=== PATIENT | female | born 1985 | race Caucasian/White ===

== ENCOUNTER 2017-03-20 12:58 | Emergency (ER) | payer OTHER ==
[~2017-03-20] VITALS: Wt 86.5 kg
[~2017-03-20 12:58] MED LIST: AMOX500C2 PO; FERR236T PO; IBUP-1542 PO; PREN1TAB49
[2017-03-20] MEDS ORDERED: OSLT75C PO (14:18)
[2017-03-20 14:38] VITALS: TEMP 98.2
--- NOTE | 2017-03-20 15:01 | ERD ---
ER Documentation Chief Complaint Chief Complaint COUGH/BODYACHE/[id number] HPI 32 year old female presents with cough and body aches x 3 days. Patient reports dry and nonproductive cough. Denies fevers or chills. States she has bilateral ear pain at times. No ear drainage. No chest pain, shortness of breath or difficulty breathing. No wheezing. Patient is here with son with same symptoms. Has tried TheraFlu and NyQuil. ROS All systems reviewed and are negative except as per history of present illness. Medications Home Meds Active Scripts Oseltamivir Phosphate* (Tamiflu*) 75 Mg Capsule, 75 MG PO BID for 5 Days, CAP Prov:JOSIE GOODSON NP 03/20/17 Amoxicillin* (Amoxicillin*) 500 Mg Cap, 500 MG PO TID for 10 Days, CAP Prov:MARITO SAUCEDA MD 10/19/15 Ibuprofen* (Motrin*) 600 Mg Tab, 600 MG PO Q6, #15 TAB Prov:MARITO SAUCEDA MD 10/19/15 Reported Medications Ferrous Gluconate (Iron) 236 Mg Tablet, 236 MG PO DAILY 04/04/13 Vits W-Ca,Fe,Fa(<1MG) () 1 Tab Tablet 09/10/10 Allergies Allergies: Coded Allergies: No Known Allergy (Verified , 10/19/15) PMhx/Soc Medical and Surgical Hx: pt denies Medical Hx, pt denies Surgical Hx History of Surgery: No Anesthesia Reaction: No Hx Neurological Disorder: No Hx Respiratory Disorders: No Hx Cardiac Disorders: No Hx Psychiatric Problems: No Hx Miscellaneous Medical Probl: No (PT DENIES) Hx Alcohol Use: No Hx Substance Use: No Hx Tobacco Use: No Smoking Status: Never smoker Physical Exam Vitals Vital Signs Date Time Temp Pulse Resp B/P Pulse Ox O2 Delivery O2 Flow Rate FiO2 03/20/17 14:38 98.2 03/20/17 13:01 99.7 67 12 124/70 96 Physical Exam Const: NAD, alert Head: Atraumatic Eyes: Normal Conjunctiva ENT: Normal External Ears, Nose and Mouth. No erythema or exudate posterior pharynx. TMs normal bilaterally. Neck: Full range of motion..~ No meningismus. Resp: Clear to auscultation bilaterally. No wheezing, rhonchi or crackles. No stridor or labored breathing. Cardio: Regular rate and rhythm, no murmurs Abd: Soft, non tender, non distended. Normal bowel sounds Skin: No petechiae or rashes Back: No midline or flank tenderness Ext: No cyanosis, or edema Neur: Awake and alert Psych: Normal Mood and Affect Procedures/MDM MDM: This is a 33-year-old female presenting to [facility] department for cough and body aches 3 days. No signs or symptoms of respiratory distress. Oxygen saturation 96% on room air. No labored breathing or intercostal retractions. Patient is talking in complete sentences. Patient denies fevers or chills. Has been taking TheraFlu and NyQuil. Patient remains alert and comfortable throughout ED visit. Low suspicion for pneumonia, pleural effusion, pneumothorax or acute AL. Differential diagnosis includes but not limited to URI, influenza, otitis media , otitis externa, asthma exacerbation, croup, bronchitis, bronchiolitis and costochondritis. Patient likely has influenza Patient is appropriate for outpatient management and will be given prescription for Tamiflu. Instructed patient to follow-up with primary care provider in the next 2-3 days for reassessment and additional management. Return to ED for any high fever, chest pain, difficulty breathing, shortness breath, wheezing, vomiting, diarrhea, abdominal pain or any new or worsening symptoms. Patient verbalizes understanding. All questions answered at discharge. Disclaimer: Inadvertent spelling and grammatical errors are likely due to EHR/ dictation software use and do not reflect on the overall quality of patient care. Also, please note that the electronic time recorded on this note does not necessarily reflect the actual time of the patient encounter. Departure Diagnosis: Primary Impression: Influenza-like symptoms Condition: Stable Patient Instructions: Influenza (Adult) Referrals: GREGG KEITH (PCP) Additional Instructions: Call your primary care doctor TOMORROW for an appointment during the next 2-3 days.See the doctor sooner or return here if your condition worsens before your appointment time. Return to ED for any high fever, chest pain, difficulty breathing, shortness breath, wheezing, vomiting, diarrhea, abdominal pain or any new or worsening symptoms. JOSIE GOODSON NP Mar 20, 2017 15:01
== END 2017-03-20 14:40 | disposition home or self-care (01) ==
LOC: FTE 12:58
DX: H92.03 Otalgia, bilateral (principal); R50.9 Fever, unspecified
CPT/HCPCS: 99283

== ENCOUNTER 2017-11-07 21:37 | Emergency (ER) | END 2017-11-08 02:32 | disposition home or self-care (01) ==